=== PATIENT | male | born 1980 | race Asian ===

== ENCOUNTER 2017-09-07 22:50 | Emergency (ER) | payer OTHER ==
[~2017-09-07] VITALS: Ht 160 cm; Wt 95.9 kg
[~2017-09-07 22:50] MED LIST: OMNIPAQUE 350 MG/ML, 100ML BOTTLE ONE
[2017-09-07] MEDS ORDERED: HYDROcodone/APAP 5/325 TABLET PO STA (23:11)
[2017-09-07] MEDS ORDERED: KETOROLAC 30 MG/1 ML IVPush ONE (23:30)
[2017-09-07] MEDS ORDERED: SODIUM CHLORIDE FLUSH 10ML SYR IVF ONE (23:30)
[2017-09-07 23:33] LABS: BASOPHILS # (AUTO) 0.04 x10^3/uL (0-0.1); BASOPHILS % (AUTO) 1 % (0-1); EOSINOPHILS # (AUTO) 0.38 x10^3/uL (0-0.4); EOSINOPHILS % (AUTO) 4 % (1-7); LYMPHOCYTES % (AUTO) 34 % (22-44); MD NO; MEAN CORPUSCULAR HEMOGLOBIN 35.2 pg (27.5-34.5); MEAN CORPUSCULAR HGB CONC 34.5 g/dL (33.2-36.2); MEAN CORPUSCULAR VOLUME 101.9 fL (81-97); MEAN PLATELET VOLUME 8.3 fL (7.4-10.4); MONOCYTES % (AUTO) 8 % (2-9); NEUTROPHILS # (AUTO) 4.85 x10^3/uL (1.8-6.8); NEUTROPHILS % (AUTO) 54 % (42-75); PLATELET COUNT 222 x10^3/uL (130-400); RED BLOOD COUNT 4.14 x10^6/uL (4.38-5.82); RED CELL DISTRIBUTION WIDTH 13.9 % (9.4-14.8)
[2017-09-07 23:37] LABS: MICROSCOPIC NOT IND
[2017-09-07 23:38] LABS: CULTURE INDICATED? NO
[2017-09-07 23:46] LABS: ALBUMIN 3.7 g/dL (3.4-5.0); ANION GAP 7 mmol/L (5-15); CALCIUM 8.1 mg/dL (8.5-10.1); CHLORIDE 109 mmol/L (98-107); CREATININE 0.91 mg/dL (0.7-1.3)
[2017-09-07] MEDS ORDERED: HYDROcodone/APAP 5/325 TABLET ONE (23:46)
[2017-09-07] MEDS ORDERED: KETOROLAC 30 MG/1 ML ONE (23:46)
[2017-09-07 23:50] LABS: TROPONIN I < 0.015 ng/mL (0.000-0.045)
[2017-09-08 00:57] VITALS: BP 107/74
== END 2017-09-08 00:59 | disposition home or self-care (01) ==
LOC: ED 23:33
DX: R07.1 Chest pain on breathing (principal); Z87.891 Personal history of nicotine dependence
CPT/HCPCS: 36415; 71045; 71275; 80048; 81003; 82040; 84484; 85025; 85379; 93005; 96374; 99285; J1885; Q9967

== ENCOUNTER 2018-02-19 20:17 | Inpatient (IN) | payer OTHER ==
[~2018-02-19] VITALS: Ht 162.6 cm; Wt 94.1 kg
[~2018-02-19 20:17] MED LIST changes: +CEFD300C37 PO; +DOXY100T PO; +GUAI600T31 PO; +LACT1CAP5 PO; -OMNIPAQUE 350 MG/ML, 100ML BOTTLE ONE
[2018-02-19] MEDS ORDERED: ONDANSETRON 2MG/ML, 2ML ONE (20:41)
[2018-02-19] MEDS ORDERED: FAMOTIDINE 20 MG/2 ML ONE (20:41)
[2018-02-19] MEDS ORDERED: PROMETHAZINE 25 MG/ML, 1ML ONE (20:41)
[2018-02-19] MEDS ORDERED: MORPHINE SULFATE 4 MG/ML, 1ML ONE (20:41)
[2018-02-19] MEDS ORDERED: FAMOTIDINE 20 MG/2 ML IVP ONE (21:00)
[2018-02-19] MEDS ORDERED: ONDANSETRON 2MG/ML, 2ML IVPush ONE (21:00)
[2018-02-19] MEDS ORDERED: PROMETHAZINE 25 MG/ML, 1ML IM ONE (21:00)
[2018-02-19] MEDS ORDERED: SODIUM CHLORIDE FLUSH 10ML SYR IVF ONE (21:00)
[2018-02-19] MEDS ORDERED: MORPHINE SULFATE 4 MG/ML, 1ML IVPush PRN (21:00)
[2018-02-19 21:16] LABS: MEAN CORPUSCULAR HEMOGLOBIN 34.6 pg (27.5-34.5); MEAN CORPUSCULAR HGB CONC 34.2 g/dL (33.2-36.2); MEAN CORPUSCULAR VOLUME 101.2 fL (81-97); MEAN PLATELET VOLUME 8.8 fL (7.4-10.4); PLATELET COUNT 223 x10^3/uL (130-400); RED BLOOD COUNT 4.43 x10^6/uL (4.38-5.82); RED CELL DISTRIBUTION WIDTH 15.4 % (9.4-14.8)
[2018-02-19 21:22] LABS: ALANINE AMINOTRANSFERASE 508 U/L (12-78); ALBUMIN 3.8 g/dL (3.4-5.0); ANION GAP 7 mmol/L (5-15); CALCIUM 8.4 mg/dL (8.5-10.1); CHLORIDE 106 mmol/L (98-107); CREATININE 0.93 mg/dL (0.7-1.3)
[2018-02-19 21:24] LABS: ALKALINE PHOSPHATASE 109 U/L (45-117); BILIRUBIN,TOTAL 9.4 mg/dL (0.2-1.0); TOTAL PROTEIN 7.7 g/dL (6.4-8.2)
--- NOTE | 2018-02-19 21:26 | NUR ---
PT SLEEPING. PT AWAKENS TO VERBAL COMMAND. PT STATES HIS NAUSEA HAS SUBSIDED AND HIS ABD PAIN IS NOW TOLERABLE. POC DISCUSSED. PT AGREES TO ATTEMPT UA. PT DENIES FURTHER NEEDS AT THIS TIME. CALL LIGHT ON LAP. SPOUSE AT BEDSIDE.
[2018-02-19] MEDS ORDERED: SODIUM CHLORIDE 0.9% 1,000ML IVBOLUS ONE (21:30)
[2018-02-19 21:38] LABS: BASOPHILS # (AUTO) 0.01 x10^3/uL (0-0.1); BASOPHILS % (AUTO) 0 % (0-1); EOSINOPHILS # (AUTO) 0.31 x10^3/uL (0-0.4); EOSINOPHILS % (AUTO) 2 % (1-7); LYMPHOCYTES # (AUTO) 1.51 x10^3/uL (1-3.4); LYMPHOCYTES % (AUTO) 11 % (22-44); MD SCAN; MONOCYTES # (AUTO) 0.06 x10^3/uL (0.2-0.8); MONOCYTES % (AUTO) 0 % (2-9); NEUTROPHILS # (AUTO) 11.99 x10^3/uL (1.8-6.8); NEUTROPHILS % (AUTO) 87 % (42-75)
[2018-02-19] MEDS ORDERED: CEFOTETAN PMX 1GM/50ML 50 ML IV ONE (23:30)
[2018-02-19 23:39] VITALS: BP 149/90
[2018-02-20] MEDS ORDERED: SODIUM CHLORIDE 0.9% 1,000 ML IV SCH (00:03)
[2018-02-20] MEDS ORDERED: LIDODERM 5% PATCH TD PRN (00:30)
[2018-02-20] MEDS ORDERED: ENALAPRILAT 1.25 MG/ML, 2ML IVPush PRN (00:30)
[2018-02-20] MEDS ORDERED: LORazepam 2 MG/ML, 1ML IVPush PRN (00:30)
[2018-02-20] MEDS ORDERED: BISACODYL 10 MG SUPP PR PRN (00:30)
[2018-02-20] MEDS ORDERED: CEFOTETAN PMX 1GM/50ML 50 ML IV ONE (00:30)
[2018-02-20] MEDS: morphine SULFATE 10 MG/ML, 1ML IVPush PRN ×5 (00:57→20:05)
[2018-02-20] MEDS: POTASSIUM CHLORIDE 20 MEQ in SODIUM CHLORIDE 0.45% 1,000 ML IV SCH ×3 (00:57→23:23)
[2018-02-20 00:58] VITALS: BP 135/89
[2018-02-20] MEDS: PROMETHAZINE 25 MG/ML, 1ML IM PRN (03:19)
[2018-02-20 06:50] VITALS: BP 154/94
[2018-02-20] MEDS: PANTOPRAZOLE 40 MG IV IVPush SCH ×2 (07:51→20:00)
[2018-02-20 11:26] LABS: BASOPHILS # (AUTO) 0.02 x10^3/uL (0-0.1); BASOPHILS % (AUTO) 0 % (0-1); EOSINOPHILS % (AUTO) 0 % (1-7); LYMPHOCYTES # (AUTO) 0.71 x10^3/uL (1-3.4); LYMPHOCYTES % (AUTO) 4 % (22-44); MD NO; MEAN CORPUSCULAR HEMOGLOBIN 35.1 pg (27.5-34.5); MEAN CORPUSCULAR HGB CONC 34.6 g/dL (33.2-36.2); MEAN CORPUSCULAR VOLUME 101.4 fL (81-97); MEAN PLATELET VOLUME 8.9 fL (7.4-10.4); MONOCYTES # (AUTO) 0.27 x10^3/uL (0.2-0.8); MONOCYTES % (AUTO) 2 % (2-9); NEUTROPHILS # (AUTO) 16.33 x10^3/uL (1.8-6.8); NEUTROPHILS % (AUTO) 94 % (42-75); PLATELET COUNT 225 x10^3/uL (130-400); RED BLOOD COUNT 4.54 x10^6/uL (4.38-5.82); RED CELL DISTRIBUTION WIDTH 15.7 % (9.4-14.8)
[2018-02-20 11:30] LABS: ALANINE AMINOTRANSFERASE 443 U/L (12-78); ALBUMIN 3.8 g/dL (3.4-5.0); ANION GAP 8 mmol/L (5-15); BILIRUBIN, DIRECT 4.6 mg/dL (0.1-0.2); CHLORIDE 106 mmol/L (98-107); CREATININE 0.98 mg/dL (0.7-1.3)
[2018-02-20 11:32] LABS: ALKALINE PHOSPHATASE 107 U/L (45-117); BILIRUBIN,INDIRECT 2.6 mg/dL (0.0-2.0); BILIRUBIN,TOTAL 7.2 mg/dL (0.2-1.0); TOTAL PROTEIN 7.7 g/dL (6.4-8.2)
[2018-02-20] MEDS ORDERED: FENTANYL PF 100 MCG/2ML ONE ×2 (12:27→13:02)
[2018-02-20] MEDS ORDERED: DIPHENHYDRAMINE 50 MG/ML, 1ML IVPush PRN ×2 (13:00→14:00)
[2018-02-20] MEDS ORDERED: FENTANYL PF 100 MCG/2ML IV PRN ×2 (13:00→14:00)
[2018-02-20] MEDS ORDERED: LABETALOL 5MG/ML, 20ML IV PRN ×2 (13:00→14:00)
[2018-02-20] MEDS ORDERED: PROCHLORPERAZINE 5 MG/ML, 2ML IV PRN (13:00)
[2018-02-20] MEDS ORDERED: hydrALAzine 20 MG/ML, 1ML IV PRN ×2 (13:00→14:00)
[2018-02-20] MEDS ORDERED: METOPROLOL 1 MG/ML, 5ML ONE (13:58)
[2018-02-20] MEDS ORDERED: OXYcodone 5 MG/5 ML ORAL.SOL UDC PO PRN (14:00)
[2018-02-20] MEDS ORDERED: MEPERIDINE/PF 25MG/0.5ML IVPush PRN (14:00)
[2018-02-20] MEDS: METOPROLOL 1 MG/ML, 5ML IV PRN ×3 (14:00→14:15)
[2018-02-20] MEDS ORDERED: PROMETHAZINE 25 MG/ML, 1ML IV PRN (14:00)
[2018-02-20] MEDS ORDERED: HYDROmorphone 2 MG/ML, 1ML IVPush PRN (14:00)
[2018-02-20] MEDS ORDERED: hydrALAzine 20 MG/ML, 1ML ONE (14:27)
[2018-02-20] MEDS ORDERED: DEXAMETHASONE 4 MG/ML, 1ML ONE (14:56)
[2018-02-20] MEDS ORDERED: PROPOFOL 10 MG/ML, 20ML ONE (14:56)
[2018-02-20] MEDS ORDERED: ALBUTEROL SULFATE 200 PUFFS/8.5 GR INH ONE (14:56)
[2018-02-20] MEDS ORDERED: ONDANSETRON 2MG/ML, 2ML ONE (14:56)
[2018-02-20 15:00] VITALS: BP 145/84
[2018-02-20] MEDS ORDERED: SODIUM CHLORIDE 0.9% 1,000ML IVBOLUS ONE (16:30)
[2018-02-20] MEDS ORDERED: LORazepam 2 MG/ML, 1ML IVPush ONE (16:30)
[2018-02-20] MEDS ORDERED: LABETALOL 5MG/ML, 20ML IVPush PRN (17:30)
[2018-02-20] MEDS ORDERED: hydrALAzine 20 MG/ML, 1ML IVPush PRN (17:30)
[2018-02-20] MEDS ORDERED: cloniDINE 0.1MG PATCH TD SCH (18:00)
[2018-02-20] MEDS: PIPERACILLIN/TAZO/PMX 4.5GM 100 ML IV SCH (18:00)
[2018-02-20] MEDS ORDERED: POTASSIUM CHLORIDE 20 MEQ, MAGNESIUM SULFATE 1 GM, THIAMINE 200 MG, FOLIC ACID 1 MG, MV... IV SCH (18:00)
[2018-02-20] MEDS: CHLORDIAZEPOXIDE 25 MG CAPSULE PO SCH ×2 (18:04→23:23)
[2018-02-20 18:50] VITALS: BP 148/98
[2018-02-20] MEDS: GABAPENTIN 100 MG CAPSULE PO SCH (20:00)
[2018-02-20] MEDS: LORazepam 2 MG/ML, 1ML IVPush PRN (21:35)
[2018-02-21] MEDS: PIPERACILLIN/TAZO/PMX 4.5GM 100 ML IV SCH ×4 (00:42→17:57)
[2018-02-21 01:48] VITALS: BP 130/87
[2018-02-21] MEDS: morphine SULFATE 10 MG/ML, 1ML IVPush PRN ×5 (02:48→17:57)
[2018-02-21 03:09] LABS: MICROSCOPIC AUTO
[2018-02-21 03:12] LABS: CULTURE INDICATED? YES
[2018-02-21 05:35] LABS: MEAN CORPUSCULAR HEMOGLOBIN 35.1 pg (27.5-34.5); MEAN CORPUSCULAR HGB CONC 34.5 g/dL (33.2-36.2); MEAN CORPUSCULAR VOLUME 101.9 fL (81-97); PLATELET COUNT 213 x10^3/uL (130-400); RED BLOOD COUNT 4.57 x10^6/uL (4.38-5.82); RED CELL DISTRIBUTION WIDTH 16.1 % (9.4-14.8)
[2018-02-21 05:37] LABS: ALBUMIN 3.1 g/dL (3.4-5.0); ANION GAP 8 mmol/L (5-15); CALCIUM 6.7 mg/dL (8.5-10.1); CHLORIDE 107 mmol/L (98-107)
[2018-02-21 06:08] LABS: ALANINE AMINOTRANSFERASE 266 U/L (12-78); ALKALINE PHOSPHATASE 80 U/L (45-117); BILIRUBIN,TOTAL 4.5 mg/dL (0.2-1.0); CREATININE 0.95 mg/dL (0.7-1.3); TOTAL PROTEIN 6.7 g/dL (6.4-8.2)
[2018-02-21 06:15] LABS: MD YES
[2018-02-21 06:16] LABS: BAND#(MANUAL) 0.72 x10^3/uL; BANDS%(MANUAL) 3 % (0-7); LYMPH#(MANUAL) 0.48 x10^3/uL (1-3.4); LYMPHS% (MANUAL) 2 % (22-44); MONOS#(MANUAL) 0.72 x10^3/uL (0.3-2.7); MONOS% (MANUAL) 3 % (2-9); SEG#(MANUAL) 22.17 x10^3/uL (1.8-6.8); SEGS% (MANUAL) 92 % (42-75)
[2018-02-21 06:18] LABS: ANISOCYTOSIS 1+; PMNS WITH VACUOLES 1+; POLYCHROMASIA 1+
[2018-02-21 06:19] LABS: <PLATELET ESTIMATE> ADEQUATE; <PLT MORPHOLOGY> NORMAL PLT MORPH
[2018-02-21] MEDS ORDERED: MORPHINE SULFATE 4 MG/ML, 1ML ONE ×2 (06:44→21:49)
[2018-02-21 07:56] VITALS: BP 125/86
[2018-02-21] MEDS: CHLORDIAZEPOXIDE 25 MG CAPSULE PO SCH ×3 (09:00→20:41)
[2018-02-21] MEDS: GABAPENTIN 100 MG CAPSULE PO SCH ×4 (09:00→20:41)
[2018-02-21] MEDS: POTASSIUM CHLORIDE 20 MEQ in SODIUM CHLORIDE 0.45% 1,000 ML IV SCH ×2 (09:20→16:12)
[2018-02-21] MEDS: PANTOPRAZOLE 40 MG IV IVPush SCH ×2 (09:20→20:10)
[2018-02-21] MEDS: LORazepam 2 MG/ML, 1ML IVPush PRN ×3 (09:40→20:11)
[2018-02-21] MEDS ORDERED: ONDANSETRON 2MG/ML, 2ML ONE (10:12)
[2018-02-21] MEDS: ONDANSETRON 2MG/ML, 2ML IVPush PRN (10:17)
[2018-02-21] MEDS ORDERED: SODIUM CHLORIDE 0.9%, 500ML IVBOLUS ONE (11:00)
[2018-02-21 13:07] VITALS: BP_SYST 113; BP_SYST 146; BP_DIAS 60; BP_DIAS 83
[2018-02-21] MEDS ORDERED: METOPROLOL 1 MG/ML, 5ML IVPush STA (15:48)
[2018-02-21] MEDS ORDERED: OMNIPAQUE 350 MG/ML, 100ML BOTTLE ONE (17:42)
[2018-02-21 18:38] VITALS: BP 139/63
[2018-02-21] MEDS: LORazepam 2 MG/ML, 1ML IV PRN (21:28)
[2018-02-21] MEDS ORDERED: LORazepam 2 MG/ML, 1ML IV PRN ×3 (21:30)
[2018-02-21] MEDS: POTASSIUM CHLORIDE 20 MEQ, MAGNESIUM SULFATE 1 GM, THIAMINE 200 MG, FOLIC ACID 1 MG, MV... IV SCH (21:30)
[2018-02-22] MEDS: LORazepam 2 MG/ML, 1ML IVPush PRN (00:32)
[2018-02-22] MEDS: PIPERACILLIN/TAZO/PMX 4.5GM 100 ML IV SCH ×5 (00:33→23:59)
[2018-02-22 00:39] VITALS: BP 112/68
[2018-02-22] MEDS: LORazepam 2 MG/ML, 1ML IV PRN ×4 (03:31→18:08)
[2018-02-22] MEDS: POTASSIUM CHLORIDE 20 MEQ in SODIUM CHLORIDE 0.45% 1,000 ML IV SCH ×5 (03:48→23:29)
[2018-02-22 04:59] LABS: CALCIUM 6.7 mg/dL (8.5-10.1); CHLORIDE 111 mmol/L (98-107)
[2018-02-22 05:13] LABS: ALANINE AMINOTRANSFERASE 132 U/L (12-78); ALBUMIN 2.6 g/dL (3.4-5.0); ALKALINE PHOSPHATASE 57 U/L (45-117); ANION GAP 7 mmol/L (5-15); BILIRUBIN,TOTAL 4.2 mg/dL (0.2-1.0); CREATININE 1.28 mg/dL (0.7-1.3); TOTAL PROTEIN 6.3 g/dL (6.4-8.2)
[2018-02-22 07:08] VITALS: BP 138/87
[2018-02-22] MEDS ORDERED: POTASSIUM PHOSPHATE 44 MEQ in SODIUM CHLORIDE 0.9% 500 ML IV ONE (07:30)
[2018-02-22] MEDS ORDERED: BUPIVACAINE/PF-EPI 0.5% 1:200K ONE (07:30)
[2018-02-22] MEDS ORDERED: FENTANYL PF 250 MCG/5ML ONE (07:51)
[2018-02-22] MEDS ORDERED: MIDAZOLAM 1 MG/ML, 2ML ONE (07:51)
[2018-02-22 07:58] LABS: ALBUMIN 2.5 g/dL (3.4-5.0); ANION GAP 6 mmol/L (5-15); CALCIUM 6.6 mg/dL (8.5-10.1); CHLORIDE 111 mmol/L (98-107)
[2018-02-22 08:01] LABS: MEAN CORPUSCULAR HEMOGLOBIN 34.8 pg (27.5-34.5); MEAN CORPUSCULAR HGB CONC 34.3 g/dL (33.2-36.2); MEAN CORPUSCULAR VOLUME 101.5 fL (81-97); RED BLOOD COUNT 4.01 x10^6/uL (4.38-5.82)
[2018-02-22] MEDS ORDERED: PROPOFOL 10 MG/ML, 20ML ONE (08:07)
[2018-02-22] MEDS ORDERED: ROCURONIUM 10MG/ML,5ML ONE (08:07)
[2018-02-22] MEDS ORDERED: SUCCINYLCHOLINE 20 MG/ML, 10ML ONE (08:07)
[2018-02-22] MEDS ORDERED: CEFOTETAN 2 GM ONE (08:07)
[2018-02-22] MEDS ORDERED: ONDANSETRON 2MG/ML, 2ML ONE (08:07)
[2018-02-22] MEDS ORDERED: DEXAMETHASONE 4 MG/ML, 1ML ONE (08:07)
[2018-02-22 08:14] LABS: ALANINE AMINOTRANSFERASE 121 U/L (12-78); ALKALINE PHOSPHATASE 53 U/L (45-117); BILIRUBIN,TOTAL 3.7 mg/dL (0.2-1.0); CREATININE 1.19 mg/dL (0.7-1.3); TOTAL PROTEIN 6.1 g/dL (6.4-8.2)
[2018-02-22 08:19] LABS: BASOPHILS # (AUTO) 0.06 x10^3/uL (0-0.1); BASOPHILS % (AUTO) 0 % (0-1); EOSINOPHILS % (AUTO) 0 % (1-7); LYMPHOCYTES % (AUTO) 9 % (22-44); MD SCAN; MONOCYTES # (AUTO) 0.99 x10^3/uL (0.2-0.8); MONOCYTES % (AUTO) 6 % (2-9); NEUTROPHILS # (AUTO) 13.34 x10^3/uL (1.8-6.8); NEUTROPHILS % (AUTO) 84 % (42-75); PLATELET COUNT 167 x10^3/uL (130-400)
[2018-02-22] MEDS ORDERED: BUPIVACAINE/PF-EPI 0.5% 1:200K INFIL ONE (08:25)
[2018-02-22] MEDS ORDERED: THROMBIN 5,000 UNIT VIAL TP ONE (08:47)
[2018-02-22] MEDS ORDERED: SUGAMMADEX 200 MG/2 ML IVPush ONE (08:57)
[2018-02-22] MEDS ORDERED: PROMETHAZINE 25 MG/ML, 1ML IV PRN (09:00)
[2018-02-22] MEDS ORDERED: LABETALOL 5MG/ML, 20ML IV PRN (09:00)
[2018-02-22] MEDS ORDERED: ACETAMINOPHEN 325 MG TABLET PO PRN (09:00)
[2018-02-22] MEDS: GABAPENTIN 100 MG CAPSULE PO SCH ×3 (09:00→22:11)
[2018-02-22] MEDS ORDERED: KETOROLAC 30 MG/1 ML IV PRN (09:00)
[2018-02-22] MEDS ORDERED: MEPERIDINE/PF 25MG/0.5ML IVPush PRN (09:00)
[2018-02-22] MEDS ORDERED: hydrALAzine 20 MG/ML, 1ML IV PRN (09:00)
[2018-02-22] MEDS ORDERED: FENTANYL PF 100 MCG/2ML IV PRN (09:00)
[2018-02-22] MEDS ORDERED: DIAZEPAM 5 MG/ML, 2ML IVPush PRN (09:00)
[2018-02-22] MEDS: PANTOPRAZOLE 40 MG IV IVPush SCH ×2 (09:00→22:11)
[2018-02-22] MEDS ORDERED: HYDROmorphone 2 MG/ML, 1ML IVPush PRN (09:00)
[2018-02-22] MEDS: CHLORDIAZEPOXIDE 25 MG CAPSULE PO SCH ×2 (09:00→22:11)
[2018-02-22] MEDS ORDERED: OXYcodone 5 MG/5 ML ORAL.SOL UDC PO PRN (09:00)
[2018-02-22] MEDS ORDERED: ALBUTEROL SULFATE 2.5 MG/3 ML NPPB PRN (09:00)
[2018-02-22] MEDS ORDERED: FENTANYL PF 100 MCG/2ML ONE (09:28)
[2018-02-22] MEDS ORDERED: OXYcodone 5 MG/5 ML ORAL.SOL UDC ONE (09:28)
[2018-02-22] MEDS ORDERED: MORPHINE SULFATE 4 MG/ML, 1ML ONE (11:43)
[2018-02-22 12:23] VITALS: BP 126/78
[2018-02-22] MEDS: morphine SULFATE 10 MG/ML, 1ML IVPush PRN ×2 (16:36→22:11)
[2018-02-22 19:57] VITALS: BP 124/79
[2018-02-23 00:53] VITALS: BP 114/70
[2018-02-23] MEDS: morphine SULFATE 10 MG/ML, 1ML IVPush PRN ×4 (04:10→19:38)
[2018-02-23] MEDS: POTASSIUM CHLORIDE 20 MEQ in SODIUM CHLORIDE 0.45% 1,000 ML IV SCH ×3 (04:46→14:32)
[2018-02-23] MEDS: PIPERACILLIN/TAZO/PMX 4.5GM 100 ML IV SCH ×2 (05:28→12:00)
[2018-02-23 07:54] VITALS: BP 108/67
[2018-02-23] MEDS: PANTOPRAZOLE 40 MG IV IVPush SCH ×2 (09:09→20:15)
[2018-02-23] MEDS: CHLORDIAZEPOXIDE 25 MG CAPSULE PO SCH ×2 (09:10→21:00)
[2018-02-23] MEDS: GABAPENTIN 100 MG CAPSULE PO SCH ×3 (09:10→21:00)
[2018-02-23] MEDS ORDERED: MORPHINE SULFATE 4 MG/ML, 1ML ONE (09:24)
[2018-02-23 12:05] VITALS: BP 111/70
[2018-02-23] MEDS: MEROPENEM 1 GM in SODIUM CHLORIDE 0.9% 100 ML IV SCH ×2 (13:25→21:41)
[2018-02-23] MEDS: POTASSIUM CHLORIDE 20 MEQ, MAGNESIUM SULFATE 1 GM, THIAMINE 200 MG, FOLIC ACID 1 MG, MV... IV SCH (17:30)
[2018-02-23 19:19] VITALS: BP 118/59
[2018-02-24] MEDS: morphine SULFATE 10 MG/ML, 1ML IVPush PRN ×2 (01:44→05:38)
[2018-02-24 01:51] VITALS: BP 123/81
[2018-02-24] MEDS: POTASSIUM CHLORIDE 20 MEQ in SODIUM CHLORIDE 0.45% 1,000 ML IV SCH ×3 (02:46→17:51)
[2018-02-24] MEDS: MEROPENEM 1 GM in SODIUM CHLORIDE 0.9% 100 ML IV SCH ×3 (05:39→21:13)
[2018-02-24 06:44] LABS: ALBUMIN 2.4 g/dL (3.4-5.0); ANION GAP 8 mmol/L (5-15); CALCIUM 7.6 mg/dL (8.5-10.1); CHLORIDE 108 mmol/L (98-107)
[2018-02-24 06:52] LABS: ALANINE AMINOTRANSFERASE 85 U/L (12-78); ALKALINE PHOSPHATASE 58 U/L (45-117); BILIRUBIN,TOTAL 2.1 mg/dL (0.2-1.0); CREATININE 0.76 mg/dL (0.7-1.3); TOTAL PROTEIN 6.3 g/dL (6.4-8.2)
[2018-02-24] MEDS: GABAPENTIN 100 MG CAPSULE PO SCH ×3 (07:39→21:13)
[2018-02-24] MEDS: PANTOPRAZOLE 40 MG IV IVPush SCH ×2 (07:39→21:13)
[2018-02-24] MEDS: CHLORDIAZEPOXIDE 25 MG CAPSULE PO SCH ×2 (07:39→21:13)
[2018-02-24 07:49] VITALS: BP 128/65
[2018-02-24 08:48] LABS: MEAN CORPUSCULAR HEMOGLOBIN 34.6 pg (27.5-34.5); MEAN CORPUSCULAR HGB CONC 34.2 g/dL (33.2-36.2); MEAN CORPUSCULAR VOLUME 101.3 fL (81-97); MEAN PLATELET VOLUME 9.2 fL (7.4-10.4); PLATELET COUNT 177 x10^3/uL (130-400); RED BLOOD COUNT 3.56 x10^6/uL (4.38-5.82); RED CELL DISTRIBUTION WIDTH 14.4 % (9.4-14.8)
[2018-02-24 09:10] LABS: MD YES
[2018-02-24 09:11] LABS: BAND#(MANUAL) 1.16 x10^3/uL; BANDS%(MANUAL) 8 % (0-7); EOS#(MANUAL) 0.29 x10^3/uL (0.0-0.4); EOS% (MANUAL) 2 % (1-7); LYMPH#(MANUAL) 1.02 x10^3/uL (1-3.4); LYMPHS% (MANUAL) 7 % (22-44); MONOS#(MANUAL) 1.16 x10^3/uL (0.3-2.7); MONOS% (MANUAL) 8 % (2-9); SEG#(MANUAL) 10.88 x10^3/uL (1.8-6.8); SEGS% (MANUAL) 75 % (42-75)
[2018-02-24 09:13] LABS: ANISOCYTOSIS 1+; POLYCHROMASIA 1+
[2018-02-24 09:14] LABS: <PLATELET ESTIMATE> ADEQUATE; <PLT MORPHOLOGY> NORMAL PLT MORPH; PMNS WITH VACUOLES 1+
[2018-02-24 12:53] VITALS: BP 128/73
[2018-02-24] MEDS: HYDROcodone/APAP 5/325 TABLET PO PRN (17:47)
[2018-02-24] MEDS: ONDANSETRON 2MG/ML, 2ML IVPush PRN (17:47)
[2018-02-24 19:03] VITALS: BP 135/86
[2018-02-25 00:57] VITALS: BP 133/78
[2018-02-25] MEDS: POTASSIUM CHLORIDE 20 MEQ in SODIUM CHLORIDE 0.45% 1,000 ML IV SCH ×4 (02:26→23:23)
[2018-02-25] MEDS: HYDROcodone/APAP 5/325 TABLET PO PRN ×2 (02:30→10:24)
[2018-02-25] MEDS: MEROPENEM 1 GM in SODIUM CHLORIDE 0.9% 100 ML IV SCH ×3 (05:20→20:48)
[2018-02-25 08:08] VITALS: BP 134/79
[2018-02-25] MEDS: CHLORDIAZEPOXIDE 25 MG CAPSULE PO SCH ×2 (08:59→20:49)
[2018-02-25] MEDS: PANTOPRAZOLE 40 MG IV IVPush SCH ×2 (08:59→20:48)
[2018-02-25] MEDS: GABAPENTIN 100 MG CAPSULE PO SCH ×3 (08:59→20:49)
[2018-02-25 10:03] LABS: MD YES; MEAN CORPUSCULAR HEMOGLOBIN 34.6 pg (27.5-34.5); MEAN CORPUSCULAR HGB CONC 34.2 g/dL (33.2-36.2); MEAN CORPUSCULAR VOLUME 101.1 fL (81-97); MEAN PLATELET VOLUME 8.3 fL (7.4-10.4); PLATELET COUNT 226 x10^3/uL (130-400); RED BLOOD COUNT 3.46 x10^6/uL (4.38-5.82); RED CELL DISTRIBUTION WIDTH 14.5 % (9.4-14.8)
[2018-02-25 10:13] LABS: ALANINE AMINOTRANSFERASE 68 U/L (12-78); ALBUMIN 2.3 g/dL (3.4-5.0); ANION GAP 8 mmol/L (5-15); CALCIUM 7.6 mg/dL (8.5-10.1); CHLORIDE 103 mmol/L (98-107); CREATININE 0.67 mg/dL (0.7-1.3)
[2018-02-25 10:15] LABS: ALKALINE PHOSPHATASE 62 U/L (45-117); BILIRUBIN,TOTAL 1.8 mg/dL (0.2-1.0); TOTAL PROTEIN 6.3 g/dL (6.4-8.2)
[2018-02-25 10:26] LABS: <PLATELET ESTIMATE> ADEQUATE; <PLT MORPHOLOGY> NORMAL PLT MORPH; ANISOCYTOSIS 1+; BAND#(MANUAL) 1.08 x10^3/uL; BANDS%(MANUAL) 7 % (0-7); LYMPH#(MANUAL) 1.39 x10^3/uL (1-3.4); LYMPHS% (MANUAL) 9 % (22-44); MONOS#(MANUAL) 1.23 x10^3/uL (0.3-2.7); MONOS% (MANUAL) 8 % (2-9); POLYCHROMASIA 1+; SEGS% (MANUAL) 76 % (42-75)
[2018-02-25 12:58] VITALS: BP 125/78
[2018-02-25] MEDS: ACETAMINOPHEN 325 MG TABLET PO PRN ×2 (13:33→20:49)
[2018-02-25 19:45] VITALS: BP 122/75
[2018-02-25] MEDS: PROMETHAZINE 25 MG/ML, 1ML IM PRN (20:49)
[2018-02-26 02:01] VITALS: BP 112/78
[2018-02-26] MEDS: POTASSIUM CHLORIDE 20 MEQ in SODIUM CHLORIDE 0.45% 1,000 ML IV SCH ×2 (04:45→22:37)
[2018-02-26] MEDS: MEROPENEM 1 GM in SODIUM CHLORIDE 0.9% 100 ML IV SCH ×2 (04:45→12:57)
[2018-02-26] MEDS: ACETAMINOPHEN 325 MG TABLET PO PRN (04:45)
[2018-02-26 06:41] LABS: CHLORIDE 103 mmol/L (98-107)
[2018-02-26 07:14] LABS: ALANINE AMINOTRANSFERASE 59 U/L (12-78); ALBUMIN 2.1 g/dL (3.4-5.0); ALKALINE PHOSPHATASE 62 U/L (45-117); ANION GAP 10 mmol/L (5-15); BILIRUBIN,TOTAL 1.4 mg/dL (0.2-1.0); CALCIUM 7.4 mg/dL (8.5-10.1); CREATININE 0.69 mg/dL (0.7-1.3)
[2018-02-26 07:38] VITALS: BP 114/73
[2018-02-26] MEDS ORDERED: OMNIPAQUE 350 MG/ML, 150 ML BOTTLE ONE (10:13)
[2018-02-26] MEDS: GABAPENTIN 100 MG CAPSULE PO SCH ×3 (11:02→22:37)
[2018-02-26] MEDS: PANTOPRAZOLE 40 MG IV IVPush SCH ×2 (11:02→22:37)
[2018-02-26] MEDS: CHLORDIAZEPOXIDE 25 MG CAPSULE PO SCH ×2 (11:02→22:37)
[2018-02-26] MEDS: PROMETHAZINE 25 MG/ML, 1ML IM PRN ×2 (12:49→19:20)
[2018-02-26 13:50] VITALS: BP 115/66
[2018-02-26] MEDS: HYDROcodone/APAP 5/325 TABLET PO PRN (15:34)
[2018-02-26 17:46] LABS: MICROSCOPIC NOT IND
[2018-02-26 17:49] LABS: CULTURE INDICATED? NO
[2018-02-26 18:35] VITALS: BP 119/72
[2018-02-26] MEDS: PIPERACILLIN/TAZO/PMX 4.5GM 100 ML IV SCH (19:47)
[2018-02-27 00:15] LABS: CLOSTRIDIUM DIFFICILE ANTIGEN NEGATIVE; CLOSTRIDIUM DIFFICILE TOXIN NEGATIVE (Negative)
[2018-02-27 00:56] VITALS: BP 106/64
[2018-02-27] MEDS: PIPERACILLIN/TAZO/PMX 4.5GM 100 ML IV SCH ×4 (01:36→19:52)
[2018-02-27 07:30] VITALS: BP 108/65
[2018-02-27 07:44] LABS: CRYPTOSPORIDIUM ANTIGEN Negative (Negative)
[2018-02-27] MEDS: GABAPENTIN 100 MG CAPSULE PO SCH (09:08)
[2018-02-27] MEDS: CHLORDIAZEPOXIDE 25 MG CAPSULE PO SCH (09:08)
[2018-02-27] MEDS: PANTOPRAZOLE 40 MG IV IVPush SCH (09:08)
[2018-02-27 10:05] LABS: ALANINE AMINOTRANSFERASE 57 U/L (12-78); ALBUMIN 2.1 g/dL (3.4-5.0); CALCIUM 7.5 mg/dL (8.5-10.1); CREATININE 0.79 mg/dL (0.7-1.3)
[2018-02-27 10:14] LABS: ALKALINE PHOSPHATASE 70 U/L (45-117); ANION GAP 9 mmol/L (5-15); CHLORIDE 103 mmol/L (98-107); TOTAL PROTEIN 6.6 g/dL (6.4-8.2)
[2018-02-27 10:28] LABS: BILIRUBIN,TOTAL 1.2 mg/dL (0.2-1.0)
[2018-02-27 11:11] LABS: MEAN CORPUSCULAR HEMOGLOBIN 35.2 pg (27.5-34.5); MEAN CORPUSCULAR VOLUME 100.6 fL (81-97); MEAN PLATELET VOLUME 8.7 fL (7.4-10.4); PLATELET COUNT 323 x10^3/uL (130-400); RED BLOOD COUNT 3.29 x10^6/uL (4.38-5.82); RED CELL DISTRIBUTION WIDTH 14.1 % (9.4-14.8)
[2018-02-27 11:28] LABS: MD YES
[2018-02-27] MEDS: POTASSIUM CHLORIDE 20 MEQ in SODIUM CHLORIDE 0.45% 1,000 ML IV SCH (11:29)
[2018-02-27 11:30] LABS: BAND#(MANUAL) 3.63 x10^3/uL; BANDS%(MANUAL) 15 % (0-7); BASOS#(MANUAL) 0.24 x10^3/uL (0-0.1); BASOS% (MANUAL) 1 % (0-1); LYMPH#(MANUAL) 0.73 x10^3/uL (1-3.4); LYMPHS% (MANUAL) 3 % (22-44); METAMYELOCYTES# (MANUAL) 0.24 x10^3/uL (0-0); METAMYELOCYTES% (MANUAL) 1 % (0-1); MONOS#(MANUAL) 0.97 x10^3/uL (0.3-2.7); MONOS% (MANUAL) 4 % (2-9); SEG#(MANUAL) 18.39 x10^3/uL (1.8-6.8); SEGS% (MANUAL) 76 % (42-75)
[2018-02-27 11:31] LABS: <PLATELET ESTIMATE> ADEQUATE; <PLT MORPHOLOGY> NORMAL PLT MORPH; ANISOCYTOSIS 1+; PMNS WITH VACUOLES 1+; POLYCHROMASIA 1+; TOXIC GRAN 1+
[2018-02-27 13:35] VITALS: BP 111/69
[2018-02-27] MEDS: ONDANSETRON 2MG/ML, 2ML IVPush PRN (14:23)
[2018-02-27] MEDS: HYDROcodone/APAP 5/325 TABLET PO PRN ×2 (17:07→23:10)
[2018-02-27 19:39] VITALS: BP 119/73
[2018-02-28] MEDS: PIPERACILLIN/TAZO/PMX 4.5GM 100 ML IV SCH ×4 (01:10→19:54)
[2018-02-28 02:27] VITALS: BP 99/62
[2018-02-28 05:01] LABS: ALBUMIN 2.1 g/dL (3.4-5.0); ANION GAP 7 mmol/L (5-15); CALCIUM 7.9 mg/dL (8.5-10.1); CHLORIDE 103 mmol/L (98-107)
[2018-02-28 05:04] LABS: ALANINE AMINOTRANSFERASE 71 U/L (12-78); ALKALINE PHOSPHATASE 74 U/L (45-117); BILIRUBIN,TOTAL 1.1 mg/dL (0.2-1.0); CREATININE 0.91 mg/dL (0.7-1.3); TOTAL PROTEIN 6.8 g/dL (6.4-8.2)
[2018-02-28 07:25] VITALS: BP 102/66
[2018-02-28] MEDS: CHLORDIAZEPOXIDE 25 MG CAPSULE PO SCH (08:02)
[2018-02-28 08:35] LABS: MEAN CORPUSCULAR HGB CONC 33.6 g/dL (33.2-36.2); MEAN CORPUSCULAR VOLUME 100.9 fL (81-97); PLATELET COUNT 337 x10^3/uL (130-400); RED BLOOD COUNT 3.29 x10^6/uL (4.38-5.82); RED CELL DISTRIBUTION WIDTH 14.4 % (9.4-14.8)
[2018-02-28 08:46] LABS: ALANINE AMINOTRANSFERASE 70 U/L (12-78); ALBUMIN 2.2 g/dL (3.4-5.0); ANION GAP 10 mmol/L (5-15); CALCIUM 7.8 mg/dL (8.5-10.1); CHLORIDE 102 mmol/L (98-107); CREATININE 0.87 mg/dL (0.7-1.3)
[2018-02-28 08:48] LABS: ALKALINE PHOSPHATASE 83 U/L (45-117); BILIRUBIN,TOTAL 1.3 mg/dL (0.2-1.0)
[2018-02-28 09:14] LABS: MD YES
[2018-02-28 09:16] LABS: BAND#(MANUAL) 1.03 x10^3/uL; BANDS%(MANUAL) 4 % (0-7); EOS#(MANUAL) 0.26 x10^3/uL (0.0-0.4); EOS% (MANUAL) 1 % (1-7); LYMPH#(MANUAL) 1.81 x10^3/uL (1-3.4); LYMPHS% (MANUAL) 7 % (22-44); METAMYELOCYTES# (MANUAL) 0.26 x10^3/uL (0-0); METAMYELOCYTES% (MANUAL) 1 % (0-1); MONOS#(MANUAL) 1.03 x10^3/uL (0.3-2.7); MONOS% (MANUAL) 4 % (2-9); SEG#(MANUAL) 21.41 x10^3/uL (1.8-6.8); SEGS% (MANUAL) 83 % (42-75)
[2018-02-28 09:17] LABS: <PLATELET ESTIMATE> ADEQUATE; <PLT MORPHOLOGY> NORMAL PLT MORPH; ANISOCYTOSIS 1+; POLYCHROMASIA 1+
[2018-02-28 13:42] VITALS: BP 107/66
[2018-02-28 20:42] VITALS: BP 94/57
[2018-02-28 20:43] VITALS: BP 97/60
[2018-02-28] MEDS: HYDROcodone/APAP 5/325 TABLET PO PRN (21:36)
[2018-03-01] MEDS: PIPERACILLIN/TAZO/PMX 4.5GM 100 ML IV SCH ×2 (00:35→07:53)
[2018-03-01 01:12] VITALS: BP 95/61
[2018-03-01] MEDS: HYDROcodone/APAP 5/325 TABLET PO PRN ×3 (04:01→22:18)
[2018-03-01 06:19] LABS: MEAN CORPUSCULAR HEMOGLOBIN 33.9 pg (27.5-34.5); MEAN CORPUSCULAR HGB CONC 33.6 g/dL (33.2-36.2); MEAN PLATELET VOLUME 8.6 fL (7.4-10.4); PLATELET COUNT 386 x10^3/uL (130-400); RED CELL DISTRIBUTION WIDTH 14.2 % (9.4-14.8)
[2018-03-01 06:51] LABS: MD YES
[2018-03-01 06:55] LABS: <PLATELET ESTIMATE> ADEQUATE; <PLT MORPHOLOGY> NORMAL PLT MORPH; ANISOCYTOSIS 1+; BAND#(MANUAL) 0.88 x10^3/uL; BANDS%(MANUAL) 3 % (0-7); LYMPH#(MANUAL) 2.35 x10^3/uL (1-3.4); LYMPHS% (MANUAL) 8 % (22-44); MONOS#(MANUAL) 2.94 x10^3/uL (0.3-2.7); MONOS% (MANUAL) 10 % (2-9); POLYCHROMASIA 1+; SEG#(MANUAL) 23.23 x10^3/uL (1.8-6.8); SEGS% (MANUAL) 79 % (42-75)
[2018-03-01 07:21] VITALS: BP 101/66
[2018-03-01] MEDS: CHLORDIAZEPOXIDE 25 MG CAPSULE PO SCH (09:09)
[2018-03-01 13:59] VITALS: BP 110/65
[2018-03-01 19:05] VITALS: BP 110/70
[2018-03-02 00:34] VITALS: BP 114/73
[2018-03-02] MEDS: HYDROcodone/APAP 5/325 TABLET PO PRN ×3 (04:15→22:36)
[2018-03-02 05:56] LABS: CHLORIDE 102 mmol/L (98-107)
[2018-03-02 06:10] LABS: ALANINE AMINOTRANSFERASE 58 U/L (12-78); ALBUMIN 2.2 g/dL (3.4-5.0); ALKALINE PHOSPHATASE 80 U/L (45-117); ANION GAP 9 mmol/L (5-15); CALCIUM 8.1 mg/dL (8.5-10.1); CREATININE 0.72 mg/dL (0.7-1.3); TOTAL PROTEIN 7.5 g/dL (6.4-8.2)
[2018-03-02 06:15] LABS: MEAN CORPUSCULAR HEMOGLOBIN 34.7 pg (27.5-34.5); MEAN CORPUSCULAR HGB CONC 34.3 g/dL (33.2-36.2); MEAN CORPUSCULAR VOLUME 101.2 fL (81-97); MEAN PLATELET VOLUME 8.2 fL (7.4-10.4); PLATELET COUNT 406 x10^3/uL (130-400); RED BLOOD COUNT 3.18 x10^6/uL (4.38-5.82); RED CELL DISTRIBUTION WIDTH 14.2 % (9.4-14.8)
[2018-03-02 06:36] LABS: HCT (SEDRATE) 32.2 % (39.2-51.8)
[2018-03-02 06:43] LABS: MD YES
[2018-03-02 06:44] LABS: BAND#(MANUAL) 0.23 x10^3/uL; BANDS%(MANUAL) 1 % (0-7); LYMPH#(MANUAL) 0.92 x10^3/uL (1-3.4); LYMPHS% (MANUAL) 4 % (22-44); METAMYELOCYTES# (MANUAL) 0.23 x10^3/uL (0-0); METAMYELOCYTES% (MANUAL) 1 % (0-1); MONOS#(MANUAL) 0.92 x10^3/uL (0.3-2.7); MONOS% (MANUAL) 4 % (2-9); SEG#(MANUAL) 20.61 x10^3/uL (1.8-6.8); SEGS% (MANUAL) 90 % (42-75)
[2018-03-02 06:45] LABS: <PLATELET ESTIMATE> INCREASED; <PLT MORPHOLOGY> NORMAL PLT MORPH; ANISOCYTOSIS 1+; POLYCHROMASIA 1+
[2018-03-02 07:25] VITALS: BP 103/64
[2018-03-02 13:46] VITALS: BP 104/67
[2018-03-02] MEDS ORDERED: LIDOCAINE-MPF 1%, 5ML ONE (15:22)
[2018-03-02 20:09] VITALS: BP 107/69
[2018-03-03 03:55] VITALS: BP 100/68
[2018-03-03 06:52] VITALS: BP 111/68
[2018-03-03 08:45] LABS: MEAN CORPUSCULAR HEMOGLOBIN 34.1 pg (27.5-34.5); MEAN CORPUSCULAR VOLUME 100.1 fL (81-97); PLATELET COUNT 474 x10^3/uL (130-400); RED BLOOD COUNT 3.38 x10^6/uL (4.38-5.82); RED CELL DISTRIBUTION WIDTH 14.4 % (9.4-14.8)
[2018-03-03 08:47] LABS: ALANINE AMINOTRANSFERASE 57 U/L (12-78); ALBUMIN 2.2 g/dL (3.4-5.0); ANION GAP 7 mmol/L (5-15); CALCIUM 7.7 mg/dL (8.5-10.1); CHLORIDE 104 mmol/L (98-107); CREATININE 0.68 mg/dL (0.7-1.3)
[2018-03-03 08:49] LABS: ALKALINE PHOSPHATASE 77 U/L (45-117); BILIRUBIN,TOTAL 1.2 mg/dL (0.2-1.0); TOTAL PROTEIN 7.8 g/dL (6.4-8.2)
[2018-03-03 09:47] LABS: MD YES
[2018-03-03 09:48] LABS: BAND#(MANUAL) 0.45 x10^3/uL; BANDS%(MANUAL) 2 % (0-7); EOS#(MANUAL) 0.22 x10^3/uL (0.0-0.4); EOS% (MANUAL) 1 % (1-7); METAMYELOCYTES# (MANUAL) 0.22 x10^3/uL (0-0); METAMYELOCYTES% (MANUAL) 1 % (0-1)
[2018-03-03 09:49] LABS: LYMPH#(MANUAL) 1.78 x10^3/uL (1-3.4); LYMPHS% (MANUAL) 8 % (22-44); MONOS#(MANUAL) 0.67 x10^3/uL (0.3-2.7); MONOS% (MANUAL) 3 % (2-9); SEG#(MANUAL) 18.96 x10^3/uL (1.8-6.8); SEGS% (MANUAL) 85 % (42-75)
[2018-03-03 09:50] LABS: <PLATELET ESTIMATE> INCREASED; <PLT MORPHOLOGY> NORMAL PLT MORPH; ANISOCYTOSIS 1+; POLYCHROMASIA 1+
[2018-03-03] MEDS ORDERED: DOCU-131 PO (11:58)
[2018-03-03] MEDS ORDERED: OXYC5TAB3 PO (11:58)
== END 2018-03-03 14:15 | disposition home or self-care (01) | DRG 853 ==
LOC: ED 21:52 → EDIP 23:03 → 3NW 23:34 → 4EST 02-20 20:57 → 4WST 02-20 22:20 → DCLOUNGE 03-03 14:10
PROVIDERS: ADMIT Hospitalist; ATTEND Hospitalist
PROC: 0FC98ZZ Extirpation of Matter from Common Bile Duct, Via Natural or Artificial Opening Endoscopic (ICD-10-PCS; 2018-02-20)
PROC: BF131ZZ Fluoroscopy of Gallbladder and Bile Ducts using Low Osmolar Contrast (ICD-10-PCS; 2018-02-20)
PROC: 0FT44ZZ Resection of Gallbladder, Percutaneous Endoscopic Approach (ICD-10-PCS; principal; 2018-02-22 08:00)
DX: A41.9 Sepsis, unspecified organism (principal); K85.10 Biliary acute pancreatitis without necrosis or infection; K85.20 Alcohol induced acute pancreatitis without necrosis or infection; K80.01 Calculus of gallbladder with acute cholecystitis with obstruction; K92.0 Hematemesis; F10.239 Alcohol dependence with withdrawal, unspecified; K56.7 Ileus, unspecified; K80.42 Calculus of bile duct with acute cholecystitis without obstruction; K80.63 Calculus of gallbladder and bile duct with acute cholecystitis with obstruction; K70.10 Alcoholic hepatitis without ascites; E66.01 Morbid (severe) obesity due to excess calories; E87.6 Hypokalemia; Y90.9 Presence of alcohol in blood, level not specified; F17.210 Nicotine dependence, cigarettes, uncomplicated
CPT/HCPCS: 36415; 74018; 74328; 87046; 99285; J3490; J7613; 49083; 71260; 74177; 74181; 76700; 80053; 80074; 80307; 81001; 81003; 82247; 82248; 82962; 83605; 83690; 83735; 84100; 85014; 85018; 85025; 85651; 86140; 87040; 87086; 87324; 87328; 87329; 88304; 89055; 93005; 94640; 96361; 96374; 96375; G0378; J1100; J2185; J2250; J2405; J2543; J2550; J2704; J3010; J3411; J3475; J3480; Q9967; C1769; C9113; J0330; J2060; J2270; J7030; J7040